=== PATIENT | female | born 1960 | race Caucasian/White ===

== ENCOUNTER → 2019-10-31 13:43 | Outpatient (BNVA) | payer OTHER, SELFPAY | PROVIDERS: Family Provider Internal Medicine; PCP Internal Medicine; Referring Provider Internal Medicine; Visit Provider Internal Medicine | DX: E05.90 Thyrotoxicosis, unspecified without thyrotoxic crisis or storm (principal); E04.9 Nontoxic goiter, unspecified | CPT/HCPCS: 99203 ==

== ENCOUNTER 2019-10-31 14:28 | Outpatient (CLI) | payer OTHER, SELFPAY ==
[2019-10-31 15:52] LABS: Free T4 Free Thyroxine 1.01 ng/dL (0.82-1.77); Thyroid Stimulating Hormone 0.35 uIU/mL (0.27-4.20)
[2019-11-01 06:39] LABS: T3 Total 129 ng/dL (76-181)
[2019-11-01 11:54] LABS: Thyroglobulin AB <1 IU/mL (< or = 1)
== END 2019-10-31 14:29 | disposition home or self-care (01) ==
LOC: LAB 14:32
PROVIDERS: PCP Internal Medicine; Visit Provider Internal Medicine
DX: E05.90 Thyrotoxicosis, unspecified without thyrotoxic crisis or storm (principal)
CPT/HCPCS: 83516; 84439; 84443; 84480; 86376; 86800